=== PATIENT | male | born 1955 ===

== ENCOUNTER 2019-02-03 17:01 | Inpatient (IN) | payer OTHER ==
[2019-02-03] MEDS ORDERED: Morphine 4 MG/ML VIAL IVP STA (17:45)
[2019-02-03] MEDS ORDERED: Piperacillin/Tazobact 3.375 GM in Sodium Chloride 0.9% 100 ML IVPB STA (17:45)
[2019-02-03] MEDS ORDERED: Sodium Chloride 0.9% 1,000 ML IV STA (17:46)
--- NOTE | 2019-02-03 18:01 | ED PDOC ---
HPI: Abdomen Time Seen by Provider: 02/03/19 17:14 Chief Complaint (Nursing): Abdominal Pain Chief Complaint (Provider): Abdominal Pain History Per: Patient History/Exam Limitations: no limitations Onset/Duration Of Symptoms: Days (3) Location Of Pain/Discomfort: RLQ Quality Of Discomfort: "Pain" Associated Symptoms: Nausea. denies: Diarrhea, Constipation Exacerbating Factors: Movement Additional Complaint(s): 63 year old male presents to the ED for an evaluation of abdominal pain onset Wednesday. At first, his whole abdomen was in pain and currently, he has RLQ pain associated with decreased appetite today with nausea, subjective fever and chills. He reports the pain worsens if he walks or get sits up from a lying-down position. Patient took Ampicillin from [place] with no relief. Also reports of urinary frequency. Otherwise, denies dysuria or hematuria, diarrhea, constipation or any chronic medical condition. PMD: no family provider Past Medical History Reviewed: Historical Data, Nursing Documentation, Vital Signs Vital Signs: Last Vital Signs Temp 99.3 F 02/03/19 17:10 Pulse 86 02/03/19 17:10 Resp 18 02/03/19 17:10 BP 146/91 H 02/03/19 17:10 Pulse Ox 97 02/03/19 17:10 - Medical History PMH: No Chronic Diseases - Family History Family History: States: Hypertension (dad at age of 101) - Social History Current smoker - smoking cessation education provided: No - Home Medications Home Medications: Ambulatory Orders Medication Instructions Recorded No Known Home Med 02/03/19 - Allergies Allergies/Adverse Reactions: Allergies Allergy/AdvReac Type Severity Reaction Status Date / Time No Known Allergies Allergy Verified 02/03/19 17:09 Review of Systems ROS Statement: Except As Marked, All Systems Reviewed And Found Negative (As per HPI, otherwise negative) Constitutional: Positive for: Fever (subjective), Chills Gastrointestinal: Positive for: Nausea, Abdominal Pain, Other (with decreased appetite today ). Negative for: Diarrhea, Constipation Genitourinary Male: Positive for: Frequency. Negative for: Dysuria, Hematuria Physical Exam - Reviewed Nursing Documentation Reviewed: Yes Vital Signs Reviewed: Yes - Physical Exam Appears: Positive for: In Acute Distress (mild; painful) Head Exam: Positive for: ATRAUMATIC, NORMOCEPHALIC Skin: Positive for: Warm, Dry Eye Exam: Positive for: EOMI, PERRL ENT: Negative for: Pharyngeal Erythema, Tonsillar Exudate Neck: Positive for: Painless ROM, Supple Cardiovascular/Chest: Positive for: Regular Rate, Rhythm. Negative for: Murmur Respiratory: Positive for: Normal Breath Sounds. Negative for: Respiratory Distress Gastrointestinal/Abdominal: Positive for: Soft (slightly obese ), Tenderness (RLQ), Other (positive for McBurney's point tenderness, Rovsing sign, psoas ). Negative for: Guarding, Rebound Back: Positive for: Normal Inspection. Negative for: Decreased ROM Extremity: Positive for: Normal ROM. Negative for: Deformity Lymphatic: Negative for: Adenopathy Neurological/Psych: Positive for: Awake, Alert, Normal Tone, Oriented (x3) - Laboratory Results Result Diagrams: 02/03/19 17:49 02/03/19 17:49 - ECG O2 Sat by Pulse Oximetry: 97 (RA) Pulse Ox Interpretation: Normal Medical Decision Making Medical Decision Making: Time: 1744 Impression: RLQ pain r/o appendicitis Plan: Type and screen BBK Abd & Pelvis IV contrast only [CT] CMP Lact acid, plasma CBC w/ Differential Partial thromboplastin time [COAG] Prothrombin time [COAG] Morphine 4mg Normal Saline 1000 mls/hr Zosyn 3.3375 gm Blood culture Urine culture IV insertion Urinalysis Reevaluation 2002 EXAM: CT Abdomen and Pelvis with IV contrast CLINICAL HISTORY: RLQ PAIN TECHNIQUE: Axial computed tomography images of the abdomen and pelvis with intravenous contrast. 875.01 mGy-cm CONTRAST: With; [id number] 95ML COMPARISON: None provided. FINDINGS: LUNG BASES: The lung bases appear clear. No pleural effusions are seen. LIVER: Unremarkable. GALLBLADDER AND BILE DUCTS: The gallbladder appears within normal limits. No radioopaque gallstones are seen. No biliary ductal dilatation is evident. PANCREAS: Unremarkable. SPLEEN: Unremarkable. ADRENAL GLANDS: Unremarkable. KIDNEYS, URETERS, AND BLADDER: There is small nonobstructing bilateral renal calculi. STOMACH AND BOWEL: There is extensive stranding and inflammatory change at the right lower quadrant in the abdomen in the region of the cecal tip and appendix with a possible ruptured appendix and appendicitis. Other etiologies not excluded. PERITONEUM: No free fluid. No free air. LYMPH NODES: No lymphadenopathy is evident. REPRODUCTIVE: Prostate gland is markedly enlarged and lobulated in contour. VASCULATURE: No evidence of abdominal aortic aneurysm. BONES: No aggressive appearing osseous lesion. No acute osseous pathology evident. IMPRESSION: Extensive stranding and inflammatory change right lower quadrant the abdomen suspicious for appendicitis and perforated appendix. Other etiologies not excluded. Enlarged lobulated prostate gland. Nonobstructing bilateral renal calculi. Surgical consultation recommended. Case discussed with Dr. Baxter, surgical services administration physician and discussed with Dr. Orr, hospital administration physician as well as surgical brace maker, Antionette. Also discussed patient finding and care. Patient will be hospitalized and receive management for appendicitis. Scribe Attestation: Documented by Kahlil Burks, acting as a scribe for Rita Akhtar MD. Provider Scribe Attestation: All medical record entries made by the Scribe were at my direction and personally dictated by me. I have reviewed the chart and agree that the record accurately reflects my personal performance of the history, physical exam, medical decision making, and the department course for this patient. I have also personally directed, reviewed, and agree with the discharge instructions and disposition. Disposition - Clinical Impression Clinical Impression: Appendicitis with perforation Counseled Patient/Family Regarding: Studies Performed, Diagnosis - Disposition Disposition Time: 20:15 Condition: IMPROVED - Pt Status Changed To: Hospital Disposition Of: Inpatient - Admit Certification Admit to Inpatient:: After my assessment, the patient will require hospitalization for at least two midnights. This is because of the severity of symptoms shown, intensity of services needed, and/or the medical risk in this patient being treated as an outpatient. - POA Present On Arrival: None
[2019-02-03 18:05] LABS: BASO # 0.1 K/uL (0.0-0.2); BASO % 0.6 % (0.0-2.0); EOS % 0.2 % (0.0-4.0); HEMOGLOBIN 13.6 g/dL (12.0-18.0); LYMPH # 2.6 K/uL (1.0-4.3); LYMPH % 20.5 % (20.0-40.0); MEAN CELL VOLUME 81.7 fl (80.0-94.0); MEAN CORPUSCULAR HEMOGLOBIN 26.3 pg (27.0-31.0); MEAN CORPUSCULAR HGB CONC 32.2 g/dL (33.0-37.0); MEAN PLATELET VOLUME 8.5 fl (7.2-11.7); MONO % 7.9 % (0.0-10.0); NEUT % 70.8 % (50.0-75.0); RBC 5.18 Mil/uL (4.40-5.90); RED CELL DISTRIBUTION WIDTH 15.5 % (11.5-14.5); WHITE BLOOD COUNT 12.7 K/uL (4.8-10.8)
[2019-02-03] MEDS ORDERED: Piperacillin/Tazobact 3.375 gm Inj IVPB ONE ×2 (18:07→20:45)
[2019-02-03] MEDS ORDERED: Morphine 4 MG/ML VIAL ONE (18:07)
[2019-02-03] MEDS ORDERED: Iohexol 300 100 ML IJ ONE (18:12)
[2019-02-03] MEDS ORDERED: Sodium Chloride 0.9% 50 ML IV ONE (18:12)
[2019-02-03 18:14] LABS: INR 1.4; PROTHROMBIN TIME 16.1 Seconds (9.8-13.1)
[2019-02-03 18:17] LABS: PARTIAL THROMBOPLASTIN TIME 30.8 Seconds (25.6-37.1)
[2019-02-03 18:23] LABS: ALB/GLOB RATIO 1.1 (1.0-2.1); ALBUMIN 4.8 g/dL (3.5-5.0); ALT/SGPT 23 U/L (21-72); AST/SGOT 21 U/L (17-59); BLOOD UREA NITROGEN 17 mg/dl (9-20); CALCIUM 9.9 mg/dL (8.4-10.2); GFR NON-AFRICAN AMERICAN > 60
--- NOTE | 2019-02-03 20:32 | CP.PCM.CON ---
History of Present Illness - History of Present Illness History of Present Illness: General Surgery Consult Note for Dr. Baxter Reason for consult: ruptured appendicitis 63 M with no significant PMH presents to [facility] ED for complaint of RLQ abdominal pain. Patient was seen and evaluated in the ED. Patient states that he has had this pain since Wednesday. Patient reports that it began in RLQ and has gotten worse over last two days. He rates pain as severe. He describes it as constant and sharp located in RLQ without radiation. He reports associated nausea but denies vomiting. He admits to passing flatus but denies BM since onset of pain. Movement and palpation aggraves his pain while nothing alleviates it. Denies recent illness or sick contacts. Admits to subjective fevers/chills. Denies cp, palpitations, SOB, vomiting, diarrhea, incontinence, urinary symptoms. PMH: Denies PSH: Denies ALL: NKDA Meds: Denies FH: non-contributory Social: denies tobacco/illicit drugs use, social ETOH Review of Systems - Review of Systems All systems: reviewed and no additional remarkable complaints except (as per HPI) Past Patient History - Past Social History Smoking Status: Never Smoked - PSYCHIATRIC Hx Substance Use: No Meds Allergies/Adverse Reactions: Allergies Allergy/AdvReac Type Severity Reaction Status Date / Time No Known Allergies Allergy Verified 02/03/19 17:09 Physical Exam - Constitutional Appears: No Acute Distress - Head Exam Head Exam: ATRAUMATIC, NORMOCEPHALIC - Eye Exam Eye Exam: EOMI, Normal appearance Pupil Exam: PERRL - ENT Exam ENT Exam: Mucous Membranes Moist - Neck Exam Neck exam: Positive for: Full Rom - Respiratory Exam Respiratory Exam: NORMAL BREATHING PATTERN - Cardiovascular Exam Cardiovascular Exam: REGULAR RHYTHM, +S1, +S2 - GI/Abdominal Exam GI & Abdominal Exam: Distended, Soft, Tenderness (RLQ). absent: Firm, Guarding, Hernia, Mass, Rebound, Rigid Additional comments: (+) McBurney's point and (+) Rovsing sign - Rectal Exam Rectal Exam: Deferred - Extremities Exam Extremities exam: Positive for: normal capillary refill, pedal pulses present. Negative for: calf tenderness - Back Exam Back exam: absent: CVA tenderness (L), CVA tenderness (R) - Neurological Exam Neurological exam: Alert, CN II-XII Intact, Oriented x3 - Psychiatric Exam Psychiatric exam: Normal Affect, Normal Mood - Skin Skin Exam: Dry, Intact, Normal Color, Warm Results - Vital Signs Recent Vital Signs: Last Vital Signs Temp 99.3 F 02/03/19 17:10 Pulse 86 02/03/19 17:10 Resp 18 02/03/19 17:10 BP 146/91 H 02/03/19 17:10 Pulse Ox 97 02/03/19 20:07 - Labs Result Diagrams: 02/03/19 17:49 02/03/19 17:49 Labs: Laboratory Results - last 24 hr 02/03/19 02/03/19 02/03/19 17:49 17:49 17:49 WBC 12.7 H RBC 5.18 Hgb 13.6 Hct 42.4 MCV 81.7 MCH 26.3 L MCHC 32.2 L RDW 15.5 H Plt Count 200 MPV 8.5 Neut % (Auto) 70.8 Lymph % (Auto) 20.5 [place] % (Auto) 7.9 Eos % (Auto) 0.2 Baso % (Auto) 0.6 Neut # (Auto) 9.0 H Lymph # (Auto) 2.6 [place] # (Auto) 1.0 H Eos # (Auto) 0.0 Baso # (Auto) 0.1 PT 16.1 H INR 1.4 APTT 30.8 Sodium 141 Potassium 3.9 Chloride 101 Carbon Dioxide 27 Anion Gap 17 BUN 17 Creatinine 1.0 Est GFR ( Amer) > 60 Est GFR (Non-Af Amer) > 60 Random Glucose 125 H Lactic Acid Calcium 9.9 Total Bilirubin 1.2 AST 21 ALT 23 Alkaline Phosphatase 59 Total Protein 9.0 H Albumin 4.8 Globulin 4.2 H Albumin/Globulin Ratio 1.1 Blood Type Antibody Screen BBK History Checked 02/03/19 02/03/19 17:49 17:49 WBC RBC Hgb Hct MCV MCH MCHC RDW Plt Count MPV Neut % (Auto) Lymph % (Auto) [place] % (Auto) Eos % (Auto) Baso % (Auto) Neut # (Auto) Lymph # (Auto) [place] # (Auto) Eos # (Auto) Baso # (Auto) PT INR APTT Sodium Potassium Chloride Carbon Dioxide Anion Gap BUN Creatinine Est GFR ( Amer) Est GFR (Non-Af Amer) Random Glucose Lactic Acid 2.1 Calcium Total Bilirubin AST ALT Alkaline Phosphatase Total Protein Albumin Globulin Albumin/Globulin Ratio Blood Type A NEGATIVE Antibody Screen Negative BBK History Checked No verified bt Assessment & Plan - Assessment and Plan (Free Text) Assessment: 63 M who presents with ruptured appendicitis with phlegmon Plan: NPO IV fluids IV abx Analgesics/Anti-emetics PRN Anti-pyretics Serial abdominal exams Monitor for bowel function Plan is to treat conservatively for now If patient worsens then operative intervention may be needed Discussed with Dr. Sahil Adan PGY2 - Date & Time Date: 02/03/19 Time: 20:47
[2019-02-03] MEDS: Lactated Ringer's 1,000 ML IV SCH (20:53)
[2019-02-03 21:02] LABS: URINE BILIRUBIN NEGATIVE (NEGATIVE); URINE CLARITY CLEAR (Clear); URINE COLOR STRAW (YELLOW); URINE GLUCOSE (UA) NEG (NEGATIVE); URINE LEUKOCYTE ESTERASE NEG Leu/uL (Negative); URINE PROTEIN NEGATIVE (NEGATIVE); URINE UROBILINOGEN 0.2-1.0 mg/dL (0.2-1.0)
[2019-02-03] MEDS: Piperacillin/Tazobact 3.375 GM in Sodium Chloride 0.9% 100 ML IVPB SCH (21:04)
[2019-02-03 21:10] LABS: URINE BLOOD TRACE (NEGATIVE)
--- NOTE | 2019-02-03 21:10 | CP.PCM.HP ---
<Sultan Garry - Last Filed: 02/03/19 21:41> History of Present Illness - History of Present Illness History of Present Illness: CC: Abdominal pain HPI: 63 year old Male with no significant PMHx presented [facility] ED for evaluation of abdominal pain. Patient reports he developed diffused abdominal pain on Wednesday (01/04/19) night which progressed to RLQ abdomen and progressively getting worse. Patient reports pain is constant, sharp, 9/10, now localized to RLQ, and worse with movement. Patient reports decreased appetite, nausea, subjective fever and chills since Wednesday as well. States he took 2 pills of ampicillin on 2 days ago that he brought from [facility]. Denies taking any pain medication, however, he rates the pain as 9/10. Patient reports no BM since the onset of pain but reports +flatus. Denies vomiting, dysuria, chest pain, dyspnea or dizziness. In the ED, CT A/P pelvis shows extensive stranding and inflammatory change right lower quadrant the abdomen suspicious for appendicitis and perforated appendix. Patient is admitted for appendicitis with perforation. ROS: All 12 systems reviewed and negative except as mentioned above PMD: none PMHX: denies Surgical hx: denies Social hx: Drinks EtOH socially. Denies smoking cigarettes or using drugs Family hx: Maternal uncle DMII Allergies: NKDA Medication: none Present on Admission - Present on Admission Any Indicators Present on Admission: No History of DVT/PE: No Review of Systems - Review of Systems Review of Systems: All 12 systems reviewed and negative except as mentioned in HPI Past Patient History - Past Social History Smoking Status: Never Smoked - PSYCHIATRIC Hx Substance Use: No Meds Allergies/Adverse Reactions: Allergies Allergy/AdvReac Type Severity Reaction Status Date / Time No Known Allergies Allergy Verified 02/03/19 17:09 Physical Exam - Constitutional Appears: Non-toxic, No Acute Distress Additional comments: obese - Head Exam Head Exam: NORMAL INSPECTION - Eye Exam Eye Exam: Normal appearance - ENT Exam ENT Exam: Mucous Membranes Moist - Neck Exam Neck exam: Positive for: Normal Inspection - Respiratory Exam Respiratory Exam: Clear to Auscultation Bilateral, NORMAL BREATHING PATTERN. absent: Rhonchi, Wheezes, Respiratory Distress - Cardiovascular Exam Cardiovascular Exam: REGULAR RHYTHM, +S1, +S2 - GI/Abdominal Exam GI & Abdominal Exam: Distended, Normal Bowel Sounds, Rebound, Soft. absent: Guarding Additional comments: Moderate RLQ tenderness. +Rovsing sign, +rebound tenderness. No guarding or rigidity. - Extremities Exam Extremities exam: Positive for: normal inspection, pedal pulses present. Negative for: calf tenderness Additional comments: Trace edema B/L lower leg - Neurological Exam Neurological exam: Alert, Oriented x3 - Psychiatric Exam Psychiatric exam: Normal Affect, Normal Mood - Skin Skin Exam: Normal Color Results - Vital Signs Recent Vital Signs: Last Vital Signs Temp 98.9 F 02/03/19 20:34 Pulse 76 02/03/19 20:34 Resp 16 02/03/19 20:34 BP 145/68 02/03/19 20:34 Pulse Ox 97 02/03/19 20:51 - Labs Result Diagrams: 02/03/19 17:49 02/03/19 17:49 Labs: Laboratory Results - last 24 hr 02/03/19 02/03/19 02/03/19 17:49 17:49 17:49 WBC 12.7 H RBC 5.18 Hgb 13.6 Hct 42.4 MCV 81.7 MCH 26.3 L MCHC 32.2 L RDW 15.5 H Plt Count 200 MPV 8.5 Neut % (Auto) 70.8 Lymph % (Auto) 20.5 [place] % (Auto) 7.9 Eos % (Auto) 0.2 Baso % (Auto) 0.6 Neut # (Auto) 9.0 H Lymph # (Auto) 2.6 [place] # (Auto) 1.0 H Eos # (Auto) 0.0 Baso # (Auto) 0.1 PT 16.1 H INR 1.4 APTT 30.8 Sodium 141 Potassium 3.9 Chloride 101 Carbon Dioxide 27 Anion Gap 17 BUN 17 Creatinine 1.0 Est GFR ( Amer) > 60 Est GFR (Non-Af Amer) > 60 Random Glucose 125 H Lactic Acid Calcium 9.9 Total Bilirubin 1.2 AST 21 ALT 23 Alkaline Phosphatase 59 Total Protein 9.0 H Albumin 4.8 Globulin 4.2 H Albumin/Globulin Ratio 1.1 Blood Type Antibody Screen BBK History Checked 02/03/19 02/03/19 17:49 17:49 WBC RBC Hgb Hct MCV MCH MCHC RDW Plt Count MPV Neut % (Auto) Lymph % (Auto) [place] % (Auto) Eos % (Auto) Baso % (Auto) Neut # (Auto) Lymph # (Auto) [place] # (Auto) Eos # (Auto) Baso # (Auto) PT INR APTT Sodium Potassium Chloride Carbon Dioxide Anion Gap BUN Creatinine Est GFR ( Amer) Est GFR (Non-Af Amer) Random Glucose Lactic Acid 2.1 Calcium Total Bilirubin AST ALT Alkaline Phosphatase Total Protein Albumin Globulin Albumin/Globulin Ratio Blood Type A NEGATIVE Antibody Screen Negative BBK History Checked No verified bt Assessment & Plan - Assessment and Plan (Free Text) Assessment: 63 year old Male with no significant PMHx presented [facility] ED for evaluation of abdominal pain. Patient reports he developed diffused abdominal pain on Wednesday (01/04/19) night which progressed to RLQ abdomen and progressively getting worse. Patient reports pain is constant, sharp, 9/10, now localized to RLQ, and worse with movement. Patient reports decreased appetite, nausea, subjective fever and chills for last 2 days. In the ED, CT A/P pelvis shows extensive stranding and inflammatory change right lower quadrant the abdomen suspicious for appendicitis and perforated appendix. Patient is admitted for appendicitis with perforation. Plan: Acute appendicitis with perforation -Admit to Med/surg -Afebrile with stable vitals -wbc 12.7 -CT A/P: IMPRESSION: Extensive stranding and inflammatory change right lower quadrant the abdomen suspicious for appendicitis and perforated appendix. Other etiologies not excluded. Enlarged lobulated prostate gland. Nonobstructing bilateral renal calculi. -s/p Zosyn 3.375 gm and 1 L NS in ED -General surgery consult -- Dr. Baxter recpriscila appreciated -NPO, IV Fluids -C/W Zosyn 3.375 gm q6 hrs -Pain management and anti-emetics -Monitor symptoms -f/u AM labs, blood cx and urine cx DVT prophylaxis -Lovenox 40 mg sc daily -scds GI prophylaxis -Protonix 40 mg IPVB daily Patient seen, examined and plan discussed with Dr. Kirby Castañeda, pgy-2 <Toby Orr - Last Filed: 02/04/19 08:58> Results - Vital Signs Recent Vital Signs: Last Vital Signs Temp 100.3 F H 02/04/19 00:21 Pulse 81 02/04/19 00:21 Resp 20 02/04/19 00:21 BP 111/73 02/04/19 00:21 Pulse Ox 95 02/04/19 00:21 - Labs Result Diagrams: 02/04/19 05:30 02/04/19 05:30 Labs: Laboratory Results - last 24 hr 02/03/19 02/03/19 02/03/19 17:49 17:49 17:49 WBC 12.7 H RBC 5.18 Hgb 13.6 Hct 42.4 MCV 81.7 MCH 26.3 L MCHC 32.2 L RDW 15.5 H Plt Count 200 MPV 8.5 Neut % (Auto) 70.8 Lymph % (Auto) 20.5 [place] % (Auto) 7.9 Eos % (Auto) 0.2 Baso % (Auto) 0.6 Neut # (Auto) 9.0 H Lymph # (Auto) 2.6 [place] # (Auto) 1.0 H Eos # (Auto) 0.0 Baso # (Auto) 0.1 PT 16.1 H INR 1.4 APTT 30.8 Sodium 141 Potassium 3.9 Chloride 101 Carbon Dioxide 27 Anion Gap 17 BUN 17 Creatinine 1.0 Est GFR ( Amer) > 60 Est GFR (Non-Af Amer) > 60 Random Glucose 125 H Lactic Acid Calcium 9.9 Total Bilirubin 1.2 AST 21 ALT 23 Alkaline Phosphatase 59 Total Protein 9.0 H Albumin 4.8 Globulin 4.2 H Albumin/Globulin Ratio 1.1 Urine Color Urine Clarity Urine pH Ur Specific [place] Urine Protein Urine Glucose (UA) Urine Ketones Urine Blood Urine Nitrate Urine Bilirubin Urine Urobilinogen Ur Leukocyte Esterase Urine RBC (Auto) Urine Microscopic WBC Blood Type Antibody Screen BBK History Checked 02/03/19 02/03/19 02/03/19 17:49 17:49 20:35 WBC RBC Hgb Hct MCV MCH MCHC RDW Plt Count MPV Neut % (Auto) Lymph % (Auto) [place] % (Auto) Eos % (Auto) Baso % (Auto) Neut # (Auto) Lymph # (Auto) [place] # (Auto) Eos # (Auto) Baso # (Auto) PT INR APTT Sodium Potassium Chloride Carbon Dioxide Anion Gap BUN Creatinine Est GFR ( Amer) Est GFR (Non-Af Amer) Random Glucose Lactic Acid 2.1 Calcium Total Bilirubin AST ALT Alkaline Phosphatase Total Protein Albumin Globulin Albumin/Globulin Ratio Urine Color Straw Urine Clarity Clear Urine pH 7.0 Ur Specific [place] 1.028 Urine Protein Negative Urine Glucose (UA) Neg Urine Ketones Negative Urine Blood Trace Urine Nitrate Negative Urine Bilirubin Negative Urine Urobilinogen 0.2-1.0 Ur Leukocyte Esterase Neg Urine RBC (Auto) 3 Urine Microscopic WBC < 1 Blood Type A NEGATIVE Antibody Screen Negative BBK History Checked No verified bt Attending/Attestation - Attestation I have personally seen and examined this patient.: Yes I have fully participated in the care of the patient.: Yes I have reviewed all pertinent clinical information: Yes Notes (Text): 02/04/19 02:25 I saw and examined this patient shoulder to shoulder with Dr Castañeda. I agree with the assessment and plan outlined which represent my direct input. this is a 63 years male with no significant past medical hx , comes with 3 days of abdominal pain, found to be an acute Appendicitis with suspicion of perforation. We will consult Surgery, give the patient nothing by mouth, add antibiotics, pain management and IV Fluids. Toby Orr MD
[2019-02-03] MEDS ORDERED: Morphine 4 MG/ML VIAL IVP PRN (22:15)
[2019-02-03 22:18] VITALS: RESP 20
[2019-02-04] MEDS: Piperacillin/Tazobact 3.375 GM in Sodium Chloride 0.9% 100 ML IVPB SCH ×4 (04:08→21:18)
[2019-02-04] MEDS: Lactated Ringer's 1,000 ML IV SCH ×3 (04:13→18:15)
--- NOTE | 2019-02-04 05:58 | CP.PCM.PN ---
<Adam Adan - Last Filed: 02/04/19 07:22> Subjective - Date & Time of Evaluation Date of Evaluation: 02/04/19 Time of Evaluation: 07:23 - Subjective Subjective: General Surgery Progress Note for Dr. Baxter Patient seen and examined at bedside. No acute event overnight. Patient still reports RLQ pain. Denies nausea/vomiting. He remains NPO. Tmax was 100.3. Patient reports to passing flatus but denies BMs. Denies fever/chills, cp, SOB, diarrhea, incontinence, numbness/tingling, urinary symptoms. Objective - Vital Signs/Intake and Output Vital Signs (last 24 hours): Temp Pulse Resp BP Pulse Ox 98.8 F 81 20 111/73 95 02/04/19 04:17 02/04/19 00:21 02/04/19 00:21 02/04/19 00:21 02/04/19 00:21 - Medications Medications: Current Medications Acetaminophen (Tylenol 325 Mg Supp) 650 mg VA Q6 PRN PRN Reason: Fever >100.4 F Enoxaparin Sodium (Lovenox) 40 mg SC DAILY [facility]; Protocol Lactated Ringer's (Lactated Ringer's) 1,000 mls @ 140 mls/hr IV .Q7H9M [facility] Last Admin: 02/04/19 04:13 Dose: 140 mls/hr Piperacillin Sod/Tazobactam (Sod 3.375 gm/ Sodium Chloride) 100 mls @ 100 mls/hr IVPB Q6 [facility]; Protocol Last Admin: 02/04/19 04:08 Dose: 100 mls/hr Morphine Sulfate (Morphine) 2 mg IVP Q4 PRN PRN Reason: Pain, moderate (4-7) Last Admin: 02/03/19 22:06 Dose: 2 mg Ondansetron HCl (Zofran Inj) 4 mg IVP Q6 PRN PRN Reason: Nausea/Vomiting Pantoprazole Sodium (Protonix Inj) 40 mg IVP DAILY [facility] - Labs Labs: 02/03/19 17:49 02/03/19 17:49 PT 16.1 Seconds (9.8-13.1) H 02/03/19 17:49 INR 1.4 02/03/19 17:49 APTT 30.8 Seconds (25.6-37.1) 02/03/19 17:49 - Additional Findings Additional findings: - Constitutional Appears: No Acute Distress - Head Exam Head Exam: ATRAUMATIC, NORMOCEPHALIC - Eye Exam Eye Exam: EOMI, Normal appearance Pupil Exam: PERRL - ENT Exam ENT Exam: Mucous Membranes Moist - Neck Exam Neck exam: Positive for: Full Rom - Respiratory Exam Respiratory Exam: NORMAL BREATHING PATTERN - Cardiovascular Exam Cardiovascular Exam: REGULAR RHYTHM, +S1, +S2 - GI/Abdominal Exam GI & Abdominal Exam: Distended, Soft, Tenderness (RLQ). absent: Firm, Guarding, Hernia, Mass, Rebound, Rigid Additional comments: (+) McBurney's point and (+) Rovsing sign - Rectal Exam Rectal Exam: Deferred - Extremities Exam Extremities exam: Positive for: normal capillary refill, pedal pulses present. Negative for: calf tenderness - Back Exam Back exam: absent: CVA tenderness (L), CVA tenderness (R) - Neurological Exam Neurological exam: Alert, CN II-XII Intact, Oriented x3 - Psychiatric Exam Psychiatric exam: Normal Affect, Normal Mood - Skin Skin Exam: Dry, Intact, Normal Color, Warm Assessment and Plan - Assessment and Plan (Free Text) Assessment: 63 M who presents with ruptured appendicitis with phlegmon Plan: NPO IV fluids IV abx Analgesics/Anti-emetics PRN Anti-pyretics Serial abdominal exams Monitor for bowel function Plan is to treat conservatively for now If patient worsens then operative intervention may be needed Discussed with Dr. Sahil Adan PGY2 <Konrad Baxter - Last Filed: 02/04/19 12:23> Objective - Vital Signs/Intake and Output Vital Signs (last 24 hours): Temp Pulse Resp BP Pulse Ox 98.5 F 73 20 114/72 95 02/04/19 08:05 02/04/19 08:05 02/04/19 08:05 02/04/19 08:05 02/04/19 08:05 - Medications Medications: Current Medications Acetaminophen (Tylenol 325 Mg Supp) 650 mg VA Q6 PRN PRN Reason: Fever >100.4 F Enoxaparin Sodium (Lovenox) 40 mg SC DAILY [facility]; Protocol Last Admin: 02/04/19 10:34 Dose: 40 mg Lactated Ringer's (Lactated Ringer's) 1,000 mls @ 140 mls/hr IV .Q7H9M [facility] Last Admin: 02/04/19 04:13 Dose: 140 mls/hr Piperacillin Sod/Tazobactam (Sod 3.375 gm/ Sodium Chloride) 100 mls @ 100 mls/hr IVPB Q6 [facility]; Protocol Last Admin: 02/04/19 10:33 Dose: 100 mls/hr Morphine Sulfate (Morphine) 2 mg IVP Q4 PRN PRN Reason: Pain, moderate (4-7) Last Admin: 02/03/19 22:06 Dose: 2 mg Ondansetron HCl (Zofran Inj) 4 mg IVP Q6 PRN PRN Reason: Nausea/Vomiting Pantoprazole Sodium (Protonix Inj) 40 mg IVP DAILY [facility] Last Admin: 02/04/19 10:33 Dose: 40 mg - Labs Labs: 02/04/19 05:30 02/04/19 05:30 PT 16.1 Seconds (9.8-13.1) H 02/03/19 17:49 INR 1.4 02/03/19 17:49 APTT 30.8 Seconds (25.6-37.1) 02/03/19 17:49 Assessment and Plan - Assessment and Plan (Free Text) Plan: discussed at length with the patient, will cont abx, may need interval appy
--- NOTE | 2019-02-04 07:36 | CT ---
Date of service: 02/03/2019 PROCEDURE: CT Abdomen and Pelvis with contrast HISTORY: RLQ pain COMPARISON: None. TECHNIQUE: Contrast dose: Radiation dose: Total exam DLP = 875.01 mGy-cm. This CT exam was performed using one or more of the following dose reduction techniques: Automated exposure control, adjustment of the mA and/or kV according to patient size, and/or use of iterative reconstruction technique. FINDINGS: LOWER THORAX: Unremarkable. LIVER: Unremarkable. No gross lesion or ductal dilatation. GALLBLADDER AND BILE DUCTS: Unremarkable. PANCREAS: Unremarkable. No gross lesion or ductal dilatation. SPLEEN: Unremarkable. ADRENALS: Unremarkable. No mass. KIDNEYS AND URETERS: Bilateral nonobstructive renal calculi.. No hydronephrosis. No solid mass. VASCULATURE: Unremarkable. No aortic aneurysm. No aortic atherosclerotic calcification or mural plaque present. BOWEL: Unremarkable. No obstruction. No gross mural thickening. APPENDIX: Extensive periappendiceal stranding and right lower quadrant infiltration with thickened appendix consistent with acute appendicitis with perforation possible. PERITONEUM: Unremarkable. No free fluid. No free air. LYMPH NODES: Unremarkable. No enlarged lymph nodes. BLADDER: Unremarkable. REPRODUCTIVE: Prostate enlargement. BONES: No acute fracture. OTHER FINDINGS: Small hiatal hernia.. IMPRESSION: Acute appendicitis.
[2019-02-04 07:44] LABS: BASO # 0.1 K/uL (0.0-0.2); BASO % 0.6 % (0.0-2.0); EOS % 0.4 % (0.0-4.0); HEMOGLOBIN 12.4 g/dL (12.0-18.0); LYMPH # 2.8 K/uL (1.0-4.3); LYMPH % 23.7 % (20.0-40.0); MEAN CELL VOLUME 81.1 fl (80.0-94.0); MEAN CORPUSCULAR HEMOGLOBIN 26.3 pg (27.0-31.0); MEAN CORPUSCULAR HGB CONC 32.4 g/dL (33.0-37.0); MEAN PLATELET VOLUME 9.3 fl (7.2-11.7); MONO % 8.6 % (0.0-10.0); NEUT # 7.8 K/uL (1.8-7.0); NEUT % 66.7 % (50.0-75.0); RBC 4.73 Mil/uL (4.40-5.90); RED CELL DISTRIBUTION WIDTH 15.6 % (11.5-14.5); WHITE BLOOD COUNT 11.7 K/uL (4.8-10.8)
[2019-02-04 07:55] LABS: BLOOD UREA NITROGEN 15 mg/dl (9-20); CALCIUM 8.7 mg/dL (8.4-10.2); GFR NON-AFRICAN AMERICAN > 60
--- NOTE | 2019-02-04 08:15 | RAD ---
Date of service: 02/03/2019 HISTORY: preop COMPARISON: No prior. FINDINGS: LUNGS: No active pulmonary disease. PLEURA: No significant pleural effusion identified, no pneumothorax apparent. CARDIOVASCULAR: No aortic atherosclerotic calcification present. Normal cardiac size. No pulmonary vascular congestion. OSSEOUS STRUCTURES: No significant abnormalities. VISUALIZED UPPER ABDOMEN: Normal. OTHER FINDINGS: None. IMPRESSION: No active disease.
[2019-02-04] MEDS: Enoxaparin 40 mg Syringe SC SCH (10:34)
--- NOTE | 2019-02-04 14:46 | CP.PCM.PN ---
Subjective - Date & Time of Evaluation Date of Evaluation: 02/04/19 Time of Evaluation: 09:30 - Subjective Subjective: Patient seen and examined bedside . All chart and clinical data reviewed . Feeling a little better . Pain to RLQ has improved. Tmax 100.3 WBC 11.7 Objective - Vital Signs/Intake and Output Vital Signs (last 24 hours): Temp Pulse Resp BP Pulse Ox 98.5 F 73 20 114/72 95 02/04/19 08:05 02/04/19 08:05 02/04/19 08:05 02/04/19 08:05 02/04/19 08:05 - Medications Medications: Current Medications Acetaminophen (Tylenol 325 Mg Supp) 650 mg MD Q6 PRN PRN Reason: Fever >100.4 F Enoxaparin Sodium (Lovenox) 40 mg SC DAILY [facility]; Protocol Last Admin: 02/04/19 10:34 Dose: 40 mg Lactated Ringer's (Lactated Ringer's) 1,000 mls @ 140 mls/hr IV .Q7H9M [facility] Last Admin: 02/04/19 04:13 Dose: 140 mls/hr Piperacillin Sod/Tazobactam (Sod 3.375 gm/ Sodium Chloride) 100 mls @ 100 mls/hr IVPB Q6 [facility]; Protocol Last Admin: 02/04/19 10:33 Dose: 100 mls/hr Morphine Sulfate (Morphine) 2 mg IVP Q4 PRN PRN Reason: Pain, moderate (4-7) Last Admin: 02/03/19 22:06 Dose: 2 mg Ondansetron HCl (Zofran Inj) 4 mg IVP Q6 PRN PRN Reason: Nausea/Vomiting Pantoprazole Sodium (Protonix Inj) 40 mg IVP DAILY [facility] Last Admin: 02/04/19 10:33 Dose: 40 mg - Labs Labs: 02/04/19 05:30 02/04/19 05:30 PT 16.1 Seconds (9.8-13.1) H 02/03/19 17:49 INR 1.4 02/03/19 17:49 APTT 30.8 Seconds (25.6-37.1) 02/03/19 17:49 - Constitutional Appears: Non-toxic, No Acute Distress - Head Exam Head Exam: ATRAUMATIC, NORMAL INSPECTION, NORMOCEPHALIC - Eye Exam Eye Exam: EOMI, Normal appearance, PERRL Pupil Exam: NORMAL ACCOMODATION - ENT Exam ENT Exam: Mucous Membranes Moist, Normal Exam - Neck Exam Neck Exam: Full ROM, Normal Inspection - Respiratory Exam Respiratory Exam: Clear to Ausculation Bilateral, NORMAL BREATHING PATTERN. absent: Rales, Rhonchi, Wheezes - Cardiovascular Exam Cardiovascular Exam: REGULAR RHYTHM, RRR, +S1, +S2. absent: JVD - GI/Abdominal Exam GI & Abdominal Exam: Soft, Normal Bowel Sounds. absent: Distended, Guarding, Tenderness, Rebound - Rectal Exam Rectal Exam: Deferred - Extremities Exam Extremities Exam: Full ROM, Normal Capillary Refill, Normal Inspection. absent: Calf Tenderness, Pedal Edema - Back Exam Back Exam: NORMAL INSPECTION - Neurological Exam Neurological Exam: Alert, Awake, CN II-XII Intact, Oriented x3 - Psychiatric Exam Psychiatric exam: Normal Affect, Normal Mood - Skin Skin Exam: Dry, Intact, Normal Color, Warm Assessment and Plan - Assessment and Plan (Free Text) Assessment: 63 year old Male with no significant PMHx presented to ER with abdominal pain for 3 days located mostly to RLQ. CT abdomen showed extensive stranding and inflammatory changes in right lower quadrant suspicious for appendicitis with perforation. Patient admitted for appendicitis with suspected perforation, s tarted on IV antibiotics and surgery consulted. 1.Acute appendicitis with suspected perforation Clinically improving , pain is controlled Tmax 100.[address] showed extensive stranding and inflammatory changes in right lower quadrant suspicious for appendicitis with perforation. Continue Zosyn IV Surgery consult appreciated .l Continue Conservative treatment Continue pain pain managemnet 2.DVT prophylaxis Lovenox 40 mg sc daily
--- NOTE | 2019-02-04 21:10 | CARD ---
APPROVED REPORT Date of service: 02/03/2019 EKG Measurement Heart [id number] [id number] <Conclusion> Normal sinus rhythm Possible Inferior infarct, age undetermined Abnormal ECG
[2019-02-05] MEDS: Lactated Ringer's 1,000 ML IV SCH ×2 (00:11→01:21)
[2019-02-05] MEDS: Piperacillin/Tazobact 3.375 GM in Sodium Chloride 0.9% 100 ML IVPB SCH ×4 (03:40→21:24)
[2019-02-05 08:01] LABS: BASO # 0.1 K/uL (0.0-0.2); BASO % 0.7 % (0.0-2.0); EOS # 0.1 K/uL (0.0-0.7); EOS % 0.8 % (0.0-4.0); HEMOGLOBIN 12.5 g/dL (12.0-18.0); LYMPH % 22.7 % (20.0-40.0); MEAN CORPUSCULAR HEMOGLOBIN 26.6 pg (27.0-31.0); MEAN CORPUSCULAR HGB CONC 32.8 g/dL (33.0-37.0); MEAN PLATELET VOLUME 9.4 fl (7.2-11.7); MONO # 0.9 K/uL (0.0-0.8); MONO % 9.9 % (0.0-10.0); NEUT # 5.8 K/uL (1.8-7.0); NEUT % 65.9 % (50.0-75.0); NRBC % 0.2 % (0.0-0.0); RBC 4.71 Mil/uL (4.40-5.90); RED CELL DISTRIBUTION WIDTH 15.6 % (11.5-14.5); WHITE BLOOD COUNT 8.7 K/uL (4.8-10.8)
--- NOTE | 2019-02-05 08:01 | CP.PCM.PN ---
<Hoa Durham - Last Filed: 02/05/19 08:24> Subjective - Date & Time of Evaluation Date of Evaluation: 02/05/19 Time of Evaluation: 06:50 - Subjective Subjective: General surgery progress note for Dr. Baxter-Hoa Durham, PGY-2 Pt seen/examined at bedside. Pt resting comfortably in bed. Reports RLQ abdominal pain is improved. Having flatus, no BM. Denies N &V, F & C, SOB, CP, other complaints. Is ambulating to bathroom, voiding freely. Tolerating CLD. Febrile over last 24 hrs, Tmax 100.5. Objective - Vital Signs/Intake and Output Vital Signs (last 24 hours): Temp Pulse Resp BP Pulse Ox 98.9 F 73 20 131/80 97 02/04/19 23:38 02/04/19 23:38 02/04/19 23:38 02/04/19 23:38 02/04/19 23:38 - Medications Medications: Current Medications Acetaminophen (Tylenol 325mg Tab) 650 mg PO Q4 PRN PRN Reason: Temperature Enoxaparin Sodium (Lovenox) 40 mg SC DAILY [facility]; Protocol Last Admin: 02/04/19 10:34 Dose: 40 mg Lactated Ringer's (Lactated Ringer's) 1,000 mls @ 140 mls/hr IV .Q7H9M [facility] Last Admin: 02/05/19 01:21 Dose: Not Given Piperacillin Sod/Tazobactam (Sod 3.375 gm/ Sodium Chloride) 100 mls @ 100 mls/hr IVPB Q6 [facility]; Protocol Last Admin: 02/05/19 03:40 Dose: 100 mls/hr Morphine Sulfate (Morphine) 2 mg IVP Q4 PRN PRN Reason: Pain, moderate (4-7) Last Admin: 02/03/19 22:06 Dose: 2 mg Ondansetron HCl (Zofran Inj) 4 mg IVP Q6 PRN PRN Reason: Nausea/Vomiting Pantoprazole Sodium (Protonix Inj) 40 mg IVP DAILY [facility] Last Admin: 02/04/19 10:33 Dose: 40 mg - Labs Labs: 02/04/19 05:30 02/04/19 05:30 PT 16.1 Seconds (9.8-13.1) H 03/08/19 17:49 INR 1.4 02/03/19 17:49 APTT 30.8 Seconds (25.6-37.1) 02/03/19 17:49 - Constitutional Appears: Non-toxic, No Acute Distress - Head Exam Head Exam: ATRAUMATIC, NORMAL INSPECTION, NORMOCEPHALIC - Eye Exam Eye Exam: EOMI, Normal appearance - ENT Exam ENT Exam: Mucous Membranes Moist, Normal Exam - Neck Exam Neck Exam: Full ROM, Normal Inspection - Respiratory Exam Respiratory Exam: Clear to Ausculation Bilateral, NORMAL BREATHING PATTERN. absent: Decreased Breath Sounds, Rhonchi, Wheezes, Respiratory Distress - Cardiovascular Exam Cardiovascular Exam: REGULAR RHYTHM, +S1, +S2 - GI/Abdominal Exam GI & Abdominal Exam: Guarding (mild, over RLQ), Soft, Tenderness (RLQ). absent: Distended (obese), Firm, Rigid, Rebound - Extremities Exam Extremities Exam: Normal Inspection - Neurological Exam Neurological Exam: Alert, Awake, CN II-XII Intact, Oriented x3 - Psychiatric Exam Psychiatric exam: Normal Affect, Normal Mood - Skin Skin Exam: Dry, Intact, Normal Color, Warm Assessment and Plan - Assessment and Plan (Free Text) Assessment: 63 M who presents with ruptured appendicitis with phlegmon Plan: Continue CLD Continue IVF Continue IV Abx Continue pain control Continue anti-emetics PRN Serial abdominal exams Monitor for bowel function Conservative treatment for now Operative intervention if indicated Will DW Dr. Sahil Durham, PGY-2 <Konrad Baxter - Last Filed: 02/05/19 10:12> Objective - Vital Signs/Intake and Output Vital Signs (last 24 hours): Temp Pulse Resp BP Pulse Ox 100.7 F H 87 20 128/86 95 02/05/19 09:51 02/05/19 08:29 02/05/19 08:29 02/05/19 08:29 02/05/19 08:29 - Medications Medications: Current Medications Acetaminophen (Tylenol 325mg Tab) 650 mg PO Q4 PRN PRN Reason: Temperature Last Admin: 02/05/19 09:51 Dose: 650 mg Enoxaparin Sodium (Lovenox) 40 mg SC DAILY [facility]; Protocol Last Admin: 02/05/19 09:50 Dose: 40 mg Lactated Ringer's (Lactated Ringer's) 1,000 mls @ 140 mls/hr IV .Q7H9M [facility] Last Admin: 02/05/19 01:21 Dose: Not Given Piperacillin Sod/Tazobactam (Sod 3.375 gm/ Sodium Chloride) 100 mls @ 100 mls/hr IVPB Q6 [facility]; Protocol Last Admin: 02/05/19 09:51 Dose: 100 mls/hr Morphine Sulfate (Morphine) 2 mg IVP Q4 PRN PRN Reason: Pain, moderate (4-7) Last Admin: 02/03/19 22:06 Dose: 2 mg Ondansetron HCl (Zofran Inj) 4 mg IVP Q6 PRN PRN Reason: Nausea/Vomiting Pantoprazole Sodium (Protonix Inj) 40 mg IVP DAILY [facility] Last Admin: 02/05/19 09:50 Dose: 40 mg - Labs Labs: 02/05/19 06:00 02/05/19 06:00 PT 16.1 Seconds (9.8-13.1) H 02/03/19 17:49 INR 1.4 02/03/19 17:49 APTT 30.8 Seconds (25.6-37.1) 02/03/19 17:49 Assessment and Plan - Assessment and Plan (Free Text) Plan: I reviewed the CT swcan again, the patient has phlegmonous changes in the right lower quadrant, jose treat with abx
[2019-02-05 08:20] LABS: BLOOD UREA NITROGEN 11 mg/dl (9-20); CALCIUM 8.9 mg/dL (8.4-10.2); GFR NON-AFRICAN AMERICAN > 60
[2019-02-05 08:38] VITALS: BMI 33.4
[2019-02-05] MEDS: Enoxaparin 40 mg Syringe SC SCH (09:50)
[2019-02-05] MEDS ORDERED: oxyCODONE 5 mg Immediate Release Tab PO PRN (10:28)
--- NOTE | 2019-02-05 10:40 | CP.PCM.PN ---
Subjective - Date & Time of Evaluation Date of Evaluation: 02/05/19 Time of Evaluation: 10:30 - Subjective Subjective: Patient seen and examined bedside . Feeling better . Pain to RLQ much improved . Tolerating PO intake and passing flatus. Denies any nausea or vomiting Tmax 100.7 last 12 hours. WBC trending down to 8.7 K No issues overnight Objective - Vital Signs/Intake and Output Vital Signs (last 24 hours): Temp Pulse Resp BP Pulse Ox 100.7 F H 87 20 128/86 95 02/05/19 09:51 02/05/19 08:29 02/05/19 08:29 02/05/19 08:29 02/05/19 08:29 - Medications Medications: Current Medications Acetaminophen (Tylenol 325mg Tab) 650 mg PO Q4 PRN PRN Reason: Temperature Last Admin: 02/05/19 09:51 Dose: 650 mg Enoxaparin Sodium (Lovenox) 40 mg SC DAILY [facility]; Protocol Last Admin: 02/05/19 09:50 Dose: 40 mg Piperacillin Sod/Tazobactam (Sod 3.375 gm/ Sodium Chloride) 100 mls @ 100 mls/hr IVPB Q6 [facility]; Protocol Last Admin: 02/05/19 09:51 Dose: 100 mls/hr Ondansetron HCl (Zofran Inj) 4 mg IVP Q6 PRN PRN Reason: Nausea/Vomiting Oxycodone HCl (Oxycodone Immediate Release Tab) 5 mg PO Q6 PRN PRN Reason: Pain, severe (8-10) Pantoprazole Sodium (Protonix Inj) 40 mg IVP DAILY [facility] Last Admin: 02/05/19 09:50 Dose: 40 mg Tramadol HCl (Ultram) 50 mg PO Q4 PRN PRN Reason: Pain, moderate (4-7) - Labs Labs: 02/05/19 06:00 02/05/19 06:00 PT 16.1 Seconds (9.8-13.1) H 02/03/19 17:49 INR 1.4 02/03/19 17:49 APTT 30.8 Seconds (25.6-37.1) 02/03/19 17:49 - Constitutional Appears: Non-toxic, No Acute Distress - Head Exam Head Exam: ATRAUMATIC, NORMAL INSPECTION, NORMOCEPHALIC - Eye Exam Eye Exam: EOMI, Normal appearance, PERRL Pupil Exam: NORMAL ACCOMODATION - ENT Exam ENT Exam: Mucous Membranes Moist, Normal Exam - Neck Exam Neck Exam: Full ROM, Normal Inspection - Respiratory Exam Respiratory Exam: Clear to Ausculation Bilateral, Rales, NORMAL BREATHING PATTERN. absent: Rhonchi, Wheezes, Respiratory Distress - Cardiovascular Exam Cardiovascular Exam: REGULAR RHYTHM, RRR, +S1, +S2. absent: JVD - GI/Abdominal Exam GI & Abdominal Exam: Soft, Tenderness (RLQ with deep palpation ), Normal Bowel Sounds. absent: Distended, Guarding, Rebound - Rectal Exam Rectal Exam: Deferred - Extremities Exam Extremities Exam: Normal Capillary Refill, Normal Inspection. absent: Pedal Edema - Back Exam Back Exam: NORMAL INSPECTION - Neurological Exam Neurological Exam: Alert, Awake, CN II-XII Intact, Oriented x3 - Psychiatric Exam Psychiatric exam: Normal Affect, Normal Mood - Skin Skin Exam: Dry, Intact, Normal Color, Warm Assessment and Plan - Assessment and Plan (Free Text) Assessment: 63 year old Male with no significant PMHx presented to ER with abdominal pain for 3 days located mostly to RLQ. CT abdomen showed extensive stranding and inflammatory changes in right lower quadrant suspicious for appendicitis with perforation. Patient admitted for appendicitis with suspected perforation, started on IV antibiotics and surgery consulted. Official CT abdomen read as acute appendicitis with no perforation . Clinically improving Tmax 100.7 WBC 8.7 , pain improving Surgery on consult 1.Acute appendicitis Clinically improving , pain is controlled Tmax 100.7 WBC trended down to 8.[address] showed extensive stranding and inflammatory changes in right lower quadrant suspicious for appendicitis, no perforation Continue Zosyn IV Surgery consult appreciated . Continue Conservative treatment Continue pain management 2.DVT prophylaxis Lovenox 40 mg sc daily
[2019-02-05 17:19] VITALS: O2SAT 96
[2019-02-05 23:53] VITALS: BP 129/83; PULSE 75; TEMP 99.5
[2019-02-06] MEDS: Piperacillin/Tazobact 3.375 GM in Sodium Chloride 0.9% 100 ML IVPB SCH (04:43)
[2019-02-06 06:33] LABS: BASO # 0.1 K/uL (0.0-0.2); BASO % 0.8 % (0.0-2.0); EOS # 0.1 K/uL (0.0-0.7); EOS % 1.9 % (0.0-4.0); LYMPH % 28.1 % (20.0-40.0); MEAN CELL VOLUME 80.4 fl (80.0-94.0); MEAN CORPUSCULAR HEMOGLOBIN 26.8 pg (27.0-31.0); MEAN CORPUSCULAR HGB CONC 33.4 g/dL (33.0-37.0); MEAN PLATELET VOLUME 8.9 fl (7.2-11.7); MONO % 13.3 % (0.0-10.0); NEUT % 55.9 % (50.0-75.0); NRBC % 0.1 % (0.0-0.0); RBC 4.47 Mil/uL (4.40-5.90); WHITE BLOOD COUNT 7.2 K/uL (4.8-10.8)
[2019-02-06 06:59] LABS: BLOOD UREA NITROGEN 9 mg/dl (9-20); CALCIUM 9.1 mg/dL (8.4-10.2); GFR NON-AFRICAN AMERICAN > 60
--- NOTE | 2019-02-06 07:38 | CP.PCM.PN ---
<Damián Boyle - Last Filed: 02/06/19 08:57> Subjective - Date & Time of Evaluation Date of Evaluation: 02/06/19 Time of Evaluation: 07:32 - Subjective Subjective: General surgery progress note for Dr. Baxter Pt seen and evaluated at bedside. Pt resting comfortably in bed. Reports his RLQ abdominal pain has improved. Patient having flatus, however, denies bowel movement. Patient reports ambulating to and from the bathroom, voiding freely, tolerating clear liquids. Patient states he is hungry. Patient denies nausea, vomiting, fever, chest pain, shortness of breath. Objective - Vital Signs/Intake and Output Vital Signs (last 24 hours): Temp Pulse Resp BP Pulse Ox 99.5 F 75 20 129/83 96 02/05/19 23:52 02/05/19 23:52 02/05/19 23:52 02/05/19 23:52 02/05/19 23:52 - Medications Medications: Current Medications Acetaminophen (Tylenol 325mg Tab) 650 mg PO Q4 PRN PRN Reason: Temperature Last Admin: 02/05/19 09:51 Dose: 650 mg Enoxaparin Sodium (Lovenox) 40 mg SC DAILY [facility]; Protocol Last Admin: 02/05/19 09:50 Dose: 40 mg Piperacillin Sod/Tazobactam (Sod 3.375 gm/ Sodium Chloride) 100 mls @ 100 mls/hr IVPB Q6 [facility]; Protocol Last Admin: 02/06/19 04:43 Dose: 100 mls/hr Ondansetron HCl (Zofran Inj) 4 mg IVP Q6 PRN PRN Reason: Nausea/Vomiting Oxycodone HCl (Oxycodone Immediate Release Tab) 5 mg PO Q6 PRN PRN Reason: Pain, severe (8-10) Pantoprazole Sodium (Protonix Inj) 40 mg IVP DAILY [facility] Last Admin: 02/05/19 09:50 Dose: 40 mg Tramadol HCl (Ultram) 50 mg PO Q4 PRN PRN Reason: Pain, moderate (4-7) - Labs Labs: 02/06/19 05:30 02/06/19 05:30 PT 16.1 Seconds (9.8-13.1) H 02/03/19 17:49 INR 1.4 02/03/19 17:49 APTT 30.8 Seconds (25.6-37.1) 02/03/19 17:49 - Constitutional Appears: Well, Non-toxic, No Acute Distress - Head Exam Head Exam: ATRAUMATIC, NORMOCEPHALIC - ENT Exam ENT Exam: Mucous Membranes Moist - Respiratory Exam Respiratory Exam: Clear to Ausculation Bilateral, NORMAL BREATHING PATTERN. absent: Accessory Muscle Use, Respiratory Distress - GI/Abdominal Exam GI & Abdominal Exam: Guarding, Soft, Normal Bowel Sounds. absent: Firm, Rigid Additional comments: Guarding (mild, over RLQ) - Neurological Exam Neurological Exam: Alert, Awake, Oriented x3 - Psychiatric Exam Psychiatric exam: Normal Affect, Normal Mood - Skin Skin Exam: Dry, Intact, Normal Color Assessment and Plan - Assessment and Plan (Free Text) Assessment: 63 y/o male who presents with ruptured appendicitis with phlegmon Plan: Start Regular Diet, possible D/C on Abx if regular diet tolerated Continue IVF Continue IV Abx Continue pain control Continue anti-emetics PRN Serial abdominal exams Monitor for bowel function Conservative treatment for now D/C on Antibiotics further recs per Dr. Sahil Boyle, PGY1 <Juan Tran - Last Filed: 02/06/19 11:54> Objective - Vital Signs/Intake and Output Vital Signs (last 24 hours): Temp Pulse Resp BP Pulse Ox 99.5 F 75 20 129/83 96 02/05/19 23:52 02/05/19 23:52 02/05/19 23:52 02/05/19 23:52 02/05/19 23:52 - Medications Medications: Current Medications Acetaminophen (Tylenol 325mg Tab) 650 mg PO Q4 PRN PRN Reason: Temperature Last Admin: 02/05/19 09:51 Dose: 650 mg Enoxaparin Sodium (Lovenox) 40 mg SC DAILY [facility]; Protocol Last Admin: 02/06/19 08:57 Dose: 40 mg Piperacillin Sod/Tazobactam (Sod 3.375 gm/ Sodium Chloride) 100 mls @ 100 mls/hr IVPB Q6 [facility]; Protocol Last Admin: 02/06/19 04:43 Dose: 100 mls/hr Ondansetron HCl (Zofran Inj) 4 mg IVP Q6 PRN PRN Reason: Nausea/Vomiting Oxycodone HCl (Oxycodone Immediate Release Tab) 5 mg PO Q6 PRN PRN Reason: Pain, severe (8-10) Pantoprazole Sodium (Protonix Inj) 40 mg IVP DAILY [facility] Last Admin: 02/06/19 08:57 Dose: 40 mg Tramadol HCl (Ultram) 50 mg PO Q4 PRN PRN Reason: Pain, moderate (4-7) - Labs Labs: 02/06/19 05:30 02/06/19 05:30 PT 16.1 Seconds (9.8-13.1) H 02/03/19 17:49 INR 1.4 02/03/19 17:49 APTT 30.8 Seconds (25.6-37.1) 02/03/19 17:49 Assessment and Plan - Assessment and Plan (Free Text) Plan: seen at bedside, no overnight events. Pt reports improved abdominal discomfort. Pt is tolerating liquid diet, denies any nausea or vomiting. gen: awake, alert, NAD HEENT: nc/at, eomi no acute respirator distress abd: soft, obese, minimal tenderness to RLQ on deep palpation, a/p pain control advance diet as tolerated cont abx
[2019-02-06] MEDS: Enoxaparin 40 mg Syringe SC SCH (08:57)
--- NOTE | 2019-02-06 10:40 | CP.PCM.DIS ---
Provider - Provider Date of Admission: 02/03/19 20:25 Attending physician: Toby Orr Consults: 02/03/19 20:26 General Surgery Consult Stat Comment: Consulting Provider: Konrad Baxter Consulting Physician: Konrad Baxter Reason for Consult: appendicitis Time Spent in preparation of Discharge (in minutes): 30 Diagnosis - Discharge Diagnosis (1) Appendicitis with perforation Status: Acute Hospital Course - Lab Results Lab Results: Micro Results 02/03/19 18:15 Blood-Venous Blood Culture - Preliminary NO GROWTH AFTER 48 HOURS 02/03/19 17:49 Blood-Venous Blood Culture - Preliminary NO GROWTH AFTER 48 HOURS 02/03/19 20:35 Urine,Clean Catch Urine Culture - Final No Growth (<1,000 CFU/ML) Most Recent Lab Values WBC 7.2 K/uL (4.8-10.8) 02/06/19 05:30 RBC 4.47 Mil/uL (4.40-5.90) 02/06/19 05:30 Hgb 12.0 g/dL (12.0-18.0) 02/06/19 05:30 Hct 35.9 % (35.0-51.0) 02/06/19 05:30 MCV 80.4 fl (80.0-94.0) 02/06/19 05:30 MCH 26.8 pg (27.0-31.0) L 02/06/19 05:30 MCHC 33.4 g/dL (33.0-37.0) 02/06/19 05:30 RDW 15.0 % (11.5-14.5) H 02/06/19 05:30 Plt Count 216 K/uL (130-400) 02/06/19 05:30 MPV 8.9 fl (7.2-11.7) 02/06/19 05:30 Neut % (Auto) 55.9 % (50.0-75.0) 02/06/19 05:30 Lymph % (Auto) 28.1 % (20.0-40.0) 02/06/19 05:30 [place] % (Auto) 13.3 % (0.0-10.0) H 02/06/19 05:30 Eos % (Auto) 1.9 % (0.0-4.0) 02/06/19 05:30 Baso % (Auto) 0.8 % (0.0-2.0) 02/06/19 05:30 Neut # (Auto) 4.0 K/uL (1.8-7.0) 02/06/19 05:30 Lymph # (Auto) 2.0 K/uL (1.0-4.3) 02/06/19 05:30 [place] # (Auto) 1.0 K/uL (0.0-0.8) H 02/06/19 05:30 Eos # (Auto) 0.1 K/uL (0.0-0.7) 02/06/19 05:30 Baso # (Auto) 0.1 K/uL (0.0-0.2) 02/06/19 05:30 PT 16.1 Seconds (9.8-13.1) H 02/03/19 17:49 INR 1.4 02/03/19 17:49 APTT 30.8 Seconds (25.6-37.1) 02/03/19 17:49 Sodium 140 mmol/l (132-148) 02/06/19 05:30 Potassium 3.8 MMOL/L (3.6-5.0) 02/06/19 05:30 Chloride 105 mmol/L (98-107) 02/06/19 05:30 Carbon Dioxide 25 mmol/L (22-30) 02/06/19 05:30 Anion Gap 14 (10-20) 02/06/19 05:30 BUN 9 mg/dl (9-20) 02/06/19 05:30 Creatinine 1.2 mg/dl (0.8-1.5) 02/06/19 05:30 Est GFR ( Amer) > 60 02/06/19 05:30 Est GFR (Non-Af Amer) > 60 02/06/19 05:30 Random Glucose 100 mg/dL (75-110) 02/06/19 05:30 Lactic Acid 2.1 mmol/L (0.7-2.1) 02/03/19 17:49 Calcium 9.1 mg/dL (8.4-10.2) 02/06/19 05:30 Phosphorus 3.8 mg/dl (2.5-4.5) 02/06/19 05:30 Magnesium 2.2 MG/DL (1.6-2.3) 02/06/19 05:30 Total Bilirubin 1.2 mg/dl (0.2-1.3) 02/03/19 17:49 AST 21 U/L (17-59) 02/03/19 17:49 ALT 23 U/L (21-72) 02/03/19 17:49 Alkaline Phosphatase 59 U/L (38-126) 02/03/19 17:49 Total Protein 9.0 G/DL (6.3-8.2) H 02/03/19 17:49 Albumin 4.8 g/dL (3.5-5.0) 02/03/19 17:49 Globulin 4.2 gm/dL (2.2-3.9) H 02/03/19 17:49 Albumin/Globulin Ratio 1.1 (1.0-2.1) 02/03/19 17:49 Urine Color Straw (YELLOW) 02/03/19 20:35 Urine Clarity Clear (Clear) 02/03/19 20:35 Urine pH 7.0 (5.0-8.0) 02/03/19 20:35 Ur Specific [place] 1.028 (1.003-1.030) 02/03/19 20:35 Urine Protein Negative mg/dL (NEGATIVE) 02/03/19 20:35 Urine Glucose (UA) Neg mg/dL (NEGATIVE) 02/03/19 20:35 Urine Ketones Negative mg/dL (NEGATIVE) 02/03/19 20:35 Urine Blood Trace (NEGATIVE) 02/03/19 20:35 Urine Nitrate Negative (NEGATIVE) 02/03/19 20:35 Urine Bilirubin Negative (NEGATIVE) 02/03/19 20:35 Urine Urobilinogen 0.2-1.0 mg/dL (0.2-1.0) 02/03/19 20:35 Ur Leukocyte Esterase Neg [place]/uL (Negative) 02/03/19 20:35 Urine RBC (Auto) 3 /hpf (0-3) 02/03/19 20:35 Urine Microscopic WBC < 1 /hpf (0-5) 02/03/19 20:35 Blood Type A NEGATIVE 02/03/19 17:49 Blood Type Confirm A NEGATIVE 02/04/19 16:05 Antibody Screen Negative 02/03/19 17:49 BBK History Checked No verified bt 02/03/19 17:49 - Hospital Course Hospital Course: 63 year old Male with no significant PMHx presented to ER with abdominal pain for 3 days located mostly to RLQ. CT abdomen showed extensive stranding and inflammatory changes in right lower quadrant suspicious for appendicitis with perforation. Patient admitted for appendicitis with suspected perforation, started on IV antibiotics and surgery consulted. Official CT abdomen read as acute appendicitis with no perforation . Clinically improving Tmax 100.7 WBC 8.7 , pain improving Surgery on consult. No intervention at this time per surgery. Patient to follow up with Dr. Baxter as outpatient. D/c with augmentin and flagyl x 7 days - Date & Time of H&P Date of H&P: 02/06/19 Time of H&P: 10:40 Discharge Exam - Head Exam Head Exam: ATRAUMATIC, NORMOCEPHALIC - Eye Exam Eye Exam: Normal appearance Pupil Exam: NORMAL ACCOMODATION - ENT Exam ENT Exam: Mucous Membranes Moist - Respiratory Exam Respiratory Exam: NORMAL BREATHING PATTERN - Cardiovascular Exam Cardiovascular Exam: REGULAR RHYTHM, +S1, +S2 - GI/Abdominal Exam GI & Abdominal Exam: Normal Bowel Sounds, Tenderness - Neurological Exam Neurological exam: Alert, Oriented x3 - Psychiatric Exam Psychiatric exam: Normal Affect Discharge Plan - Follow Up Plan Condition: IMPROVED Disposition: HOME/ ROUTINE Instructions: Appendicitis in Adults, Laparoscopic Appendectomy (DC), Laparoscopic Appendectomy in Children (DC) Additional Instructions: follow up with primary MD 1 week Referrals: [facility] [place] [Outside] Konrad Baxter MD [Staff Provider] -
== END 2019-02-06 14:20 | disposition home or self-care (01) | DRG 395 ==
LOC: H.ER 17:01 → H.ERHOLD 20:25 → H.MEDSURG1 21:40
PROVIDERS: ADMIT Internal Medicine; ATTEND Internal Medicine
DX: K35.80 Unspecified acute appendicitis (principal)